=== PATIENT | female | born 1940 | race Caucasian/White ===

== ENCOUNTER 2017-01-04 16:53 | Emergency (ER) | payer MEDICARE, OTHER ==
[2017-01-04] MEDS ORDERED: Sodium Chloride 0.9% 10 ML Syringe FLUSH PRN (16:55)
--- NOTE | 2017-01-04 16:55 | EDM.PDOC ---
ED HPI GENERAL MEDICAL PROBLEM - General Chief Complaint: General Stated Complaint: cough, fever Time Seen by Provider: 01/04/17 16:54 Source of Information: Reports: Patient, Family (), Old Records ([facility] chart/EMR) History Limitations: Reports: No Limitations - History of Present Illness INITIAL COMMENTS - FREE TEXT/NARRATIVE: Patient was driven to the emergency room via private automobile by her for evaluation of a nonproductive cough, which started at about 8 AM this morning when she woke up. She also had a fever of 101 at 15:00 hours this afternoon with no medications other than her regular medications taken to this point. She denies any known exposure to infection with her influenza and Pneumovax boosters being up-to-date by her history. Patient did have some mild URI symptoms during the last couple of weeks with bilateral 7/10 frontal headaches at this time. The patient denies any chest pain/pressure, heart flutter, dizziness, orthostasis, orthopnea, diaphoresis, paresthesias, recent decreased exercise tolerance, or any other anginal-type symptoms. No recent history of abdominal pain, heartburn, nausea, diarrhea, melena, gross hematochezia, or any food intolerance, including fatty foods, etc.. Onset: Today, Gradual Onset Date: 01/04/17 Onset Time: 08:00 Duration: Getting Worse Location: Reports: Head. Denies: Face, Neck, Chest, Abdomen, Back, Upper Extremity, Left, Upper Extremity, Right, Radiates to Quality: Reports: Ache, Same as Previous Episode Severity: Moderate Improves with: Reports: None Worsens with: Reports: None Context: Reports: Other (As above) Associated Symptoms: Reports: Cough, Fever/Chills, Headaches. 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 (see below) (None) Bilateral Frontal Headache Pain Score (Numeric/FACES): 7 - Related Data Allergies Allergy/AdvReac Type Severity Reaction Status Date / Time linezolid [From Zyvox] Allergy Severe Wheezing Verified 01/06/13 12:02 doxycycline Allergy Intermediate Rash Verified 01/06/13 12:02 erythromycin base Allergy Intermediate Gastritis Verified 01/06/13 12:02 kiwi Allergy Intermediate Hives Verified 01/06/13 12:02 celecoxib [From Celebrex] Allergy Hypotension Verified 01/04/17 17:00 egg Allergy Difficulty Verified 01/04/17 16:58 Breathing Fish Containing Products Allergy Difficulty Verified 01/04/17 16:58 Breathing lemon Allergy Hives Verified 01/04/17 16:57 Penicillins Allergy Hives Verified 01/06/13 12:02 rifampin Allergy Flu Verified 01/06/13 12:02 symptoms Sulfa (Sulfonamide Allergy Hives Verified 01/06/13 12:02 Antibiotics) tetanus and diphtheria Allergy Large Verified 01/06/13 12:02 toxoids Fluid Pocket [place] Allergy Severe Airway Uncoded 01/06/13 12:02 Tightness environmental allergens Allergy Mild unknown Uncoded 01/06/13 12:02 nuts Allergy Airway Uncoded 01/06/13 12:02 Tightness raisins Allergy Itching Uncoded 01/06/13 12:02 Home Meds: Home Meds Acetaminophen 325 mg PO ASDIRECTED PRN 01/04/17 [History] Albuterol Sulfate [Proair Hfa] 2 dose IH ASDIRECTED PRN 01/04/17 [History] Aspirin 325 mg PO DAILY 01/04/17 [History] Blood Sugar Diagnostic [Glucose Test Strip] 1 ea .ROUTE ASDIRECTED 01/04/17 [ History] Budesonide/Formoterol [Symbicort 80-4.5 MCG] 2 puff INH BID 01/04/17 [History] Cefprozil [Cefzil] 500 mg PO BID #20 tablet 01/04/17 [Rx] Cholecalciferol (Vitamin D3) [Vitamin D3] 2,000 unit PO DAILY 01/04/17 [History] Hydrochlorothiazide 12.5 mg PO DAILY 01/04/17 [History] Levothyroxine 75 mcg PO ACBREAKFAST 01/04/17 [History] Magnesium Hydroxide [Milk of Magnesia] 30 ml PO BEDTIME PRN 01/04/17 [History] Magnesium Oxide 400 mg PO QPM #20 tablet 01/04/17 [Rx] Montelukast Sodium [Singulair] 10 mg PO BEDTIME 01/04/17 [History] Non-Formulary Medication [NF Drug] 5 ml PO TID PRN 01/04/17 [History] Nystatin [Mycostatin] 5 ml PO TID PRN 01/04/17 [History] Omeprazole 40 mg PO DAILY 01/04/17 [History] Pravastatin Sodium [Pravastatin (Pravachol)] 40 mg PO DAILY 01/04/17 [History] Pyridoxine HCl [Vitamin B-6] 50 mg PO DAILY 01/04/17 [History] metFORMIN HCl [Metformin HCl] 1,000 mg PO BID 01/04/17 [History] Past Medical History HEENT History: Reports: Allergic Rhinitis, Cataract, Hard of Hearing, Impaired Vision, Otitis Media, Other (See Below). Denies: Glaucoma, Macular Degeneration , Retinal Detachment Other HEENT History: Multiple food allergies including fish, nuts, maged, etc. 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 Denies: Afib, Aneurysm, Arrhythmia , Blood Clots/VTE/DVT, CAD, IN, Pacemaker, PVD Other Cardiovascular History: Unknown type of congenital cardiomyopathy and heart murmur with recurrent syncope as a child and resolution at age 14? Respiratory History: Reports: COPD, Other (See Below). Denies: Intubation, Previous, PE, Pneumothorax, Sleep Apnea Other Respiratory History: Benign pulmonary nodules bilaterally Gastrointestinal History: Reports: Colon Polyp, Diverticulosis, Gastritis, GERD , GI Bleed, Other (See Below). Denies: Celiac Disease, Cholelithiasis, Chronic Constipation, Chronic Diarrhea, Fecal Incontinence, Hepatitis, Inflammatory Bowel Disease, Irritable Bowel Syndrome, Jaundice, Pancreatitis, PUD Other Gastrointestinal History: Eosinophilic esophagitis with history of dysphagia secondary to esophageal stenoses Genitourinary History: Reports: None, Urinary Incontinence. Denies: Acute Renal Failure, Chronic Renal Insuffiency, Renal Calculus, STD, UTI, Recurrent SUPER[employer]KS History: Reports: . Denies: Dysfunctional Uterine Bleeding, Endometriosis, Fibroids, Polycystic Ovaries, Spontaneous , Therapeutic : 2 Para: 2 (Full term without complications during pregnancies or deliveries) LMP (Approximate): Menopausal (In her 50s) Musculoskeletal History: Reports: Arthritis, Back Pain, Chronic, Fracture, Neck Pain, Chronic, Osteoarthritis, Osteoporosis, Other (See Below). Denies: Amputation, Gout, RA, SLE Other Musculoskeletal History: Nasal fracture in her 40s Neurological History: Reports: CVA, Headaches, Chronic, Migraines, Other (See Below). Denies: Alzheimers Disease, Cerebral Aneurysms, Concussion, Head Trauma , MS, Neuropathy, Diabetic, Neuropathy, Peripheral, Parkinson's, Seizure, TIA Other Neuro History: Cluster headaches as a child; Right-sided CVA with brief left hemiparesis in 2007 with no significant permanent deficits Psychiatric History: Reports: None. Denies: Abuse, Victim of, ADD, Addiction, Anxiety, Depression, Psych Hospitalization(s), PTSD, Suicide Attempt, Suicidal Ideation Endocrine/Metabolic History: Reports: Diabetes, Type II, Hypothyroidism, Osteoporosis, Other (See Below). Denies: Diabetes, Type I, IDDM Other Endocrine/Metabolic History: benign thyroid nodules Hematologic History: Reports: None. Denies: Anemia, B12 Deficiency, Blood Transfusion(s), Iron Deficiency Immunologic History: Reports: None. Denies: AIDS, HIV, SLE Oncologic (Cancer) History: Reports: None. Denies: Basal Cell Carcinoma, Cervix , Colon, Hodgkin's Lymphoma, Leukemia, Lymphoma, Malignant Melanoma, Non-Hodgkin 's Lymphoma, Squamous Cell Carcinoma Dermatologic History: Reports: Other (See Below). Denies: Eczema, Psoriasis Other Dermatologic History: Lichen planus - Infectious Disease History Infectious Disease History: Reports: Chicken Pox, MRSA, Mumps, Other (See Below) . Denies: C-Difficile, Meningitis, Mononucleosis, Multidrug-Resistant Pseudomonas (MDRP), Pertussis (Whooping Cough), Rheumatic Fever, Rubella, Scarlet Fever, Shingles, VRE Other Infectious Disease History: MRSA of the left ear with secondary mastoiditis requiring surgery as below - Past Surgical History Head Surgeries/Procedures: Reports: None HEENT Surgical History: Reports: Adenoidectomy, Cataract Surgery, Myringotomy w Tube(s), Oral Surgery, Tonsillectomy, Other (See Below). Denies: Eye Surgery, Laser Surgery, LASIK, Naso-Sinus Surgery Other HEENT Surgeries/Procedures: Tonsillectomy and adenoidectomy at age 5; left -sided debridement from MRSA otitis media and mastoiditis with PE tube placement in 2012; Bilateral cataract surgery in 2004 Cardiovascular Surgical History: Reports: None. Denies: Varicose, Vascular Surgery Respiratory Surgical History: Reports: None. Denies: Thoracentesis GI Surgical History: Reports: Colonoscopy, EGD, Polypectomy, Other (See Below). Denies: Appendectomy, Cholecystectomy, Hernia, Abdominal, Hernia, Inguinal, Hernia Repair/Other Other GI Surgeries/Procedures: Last colonoscopy in 2012 with polypectomy 2 with unknown type of polyps in the colon; last EGD with esophageal dilatation on 08/07/15 Female Surgical History: Reports: Breast Biopsy, Other (See Below). Denies: Hysterectomy, Salpingo-Oophorectomy, Tubal Ligation Other Female Surgeries/Procedures: Right-sided breast biopsy for benign disease in her 60s Neurological Surgical History: Reports: None. Denies: C-Spine, Discectomy, Intracranial, Laminectomy, Lumbar Spine, Spinal Fusion, Vertebroplasty Musculoskeletal Surgical History: Reports: Arthroscopic Knee, Shoulder Surgery, Other (See Below). Denies: Amputation, Arthroscopic Procedure, Carpal Tunnel, Ganglion Cyst, Joint Replacement, ORIF Other Musculoskeletal Surgeries/Procedures:: Bilateral rotator cuff repair with right shoulder 2003 and left shoulder and 2009; laparoscopic meniscal repair of the right knee in December 2006 Oncologic Surgical History: Reports: Biopsy of Breast (As above) Dermatological Surgical History: Reports: None - Past Imaging History Past Imaging History: Reports: CAT Scan (Last CT scan of the chest in November 2016), Mammogram (Last mammogram on 11/22/16) Social & Family History - Tobacco Use Smoking Status *Q: Former Smoker Tobacco Use Within Last Twelve Months: No Years of Tobacco use: 7 Packs/Tins Daily: 1 (Smoked between ages 16 and 23) Used Tobacco, but Quit: Yes Smoking Cessation Information Provided To Patient: No Second Hand Smoke Exposure: No Second Hand Smoke Education Provided: No - Caffeine Use Caffeine Use: Reports: Tea (1 cup per day). 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 Denies: Malaise, Weakness, Fatigue, Night Sweats, Diaphoresis, Decreased Appetite, Weight Loss, Weight Gain HEENT: Reports: Glasses, Rhinitis. Denies: Dental Pain, Ear Discharge, Ear Pain , Eye Discharge, Eye Pain, Sinus Problem, Throat Pain, Throat Swelling, Vertigo , Vision Change Respiratory: Reports: Cough, Sputum. Denies: Shortness of Breath, Wheezing, Pleuritic Chest Pain, Hemoptysis Cardiovascular: Denies: Chest Pain, Blood Pressure Problem, Claudication, Dyspnea on Exertion, Edema, Lightheadedness, Orthopnea, Palpitations, PND, Syncope Endocrine: Reports: No Symptoms. Denies: Fatigue GI/Abdominal: Reports: No Symptoms. Denies: Abdominal Pain, Anorexia, Black Stool, Bloody Stool, Constipation, Diarrhea, Decreased Appetite, Difficulty Swallowing, Distension, Flatus, Hematemesis, Hematochezia, Melena, Nausea, Stool Incontinence, Vomiting : Reports: No Symptoms. Denies: Discharge, Dysuria, Flank Pain, Frequency, Hematuria, Pain, Urgency, Urinary Retention Musculoskeletal: Reports: Hand Pain (As above). Denies: Neck Pain, Shoulder Pain, Arm Pain, Back Pain, Leg Pain, Foot Pain, Joint Pain, Joint Swelling, Muscle Pain, Muscle Stiffness Skin: Reports: No Symptoms. Denies: Diaphoresis, Bruising, Erythema, Wound Neurological: Reports: Headache (Sinus headache as above). Denies: Confusion, Dizziness, Numbness, Paresthesia, Seizure, Syncope, Tingling, Trouble Speaking, Weakness Psychiatric: Reports: No Symptoms. Denies: Agitation, Anxiety, Confusion, Depression, Hallucinations Hematologic/Lymphatic: Reports: No Symptoms Immunologic: Reports: No Symptoms ED EXAM, GENERAL - Physical Exam Exam: See Below Exam Limited By: No Limitations General Appearance: Alert, WD/WN, No Apparent Distress Eye Exam: Bilateral Eye: EOMI, Normal Inspection (No nystagmus; patient wearing glasses), PERRL Ears: Normal External Exam, Normal Canal, Normal TMs (left anterior lower PE tube with no evidence of infection or drainage), Hearing Loss (Bilateral hearing aids with good results) Nose: Normal Inspection, Normal Mucosa, No Blood, Clear Rhinorrhea Throat/Mouth: Normal Lips, Normal Gums, Normal Oropharynx, Normal Voice, No Airway Compromise. No: Normal Teeth (Complete upper dentures, partial lowers), Dysphagia, Perioral Cyanosis Head: Atraumatic, Normocephalic, Sinus Tenderness (Borderline bilateral frontal) . No: Facial Swelling, Facial Tenderness Neck: Supple, Non-Tender, Full Range of Motion, Carotid Bruit (Bilateral carotid bruitsmild). No: Lymphadenopathy (L), Lymphadenopathy (R), Thyromegaly Respiratory/Chest: No Respiratory Distress, Lungs Clear, Normal Breath Sounds, No Accessory Muscle Use, Chest Non-Tender. No: Rales Cardiovascular: Normal Peripheral Pulses, Regular Rate, Rhythm, No Edema, No Gallop, No JVD, No Murmur, No Rub. No: Gallop/S3, Gallop/S4, Friction Rub Peripheral Pulses: 2+: Radial (L), Radial (R) GI/Abdominal: Normal Bowel Sounds, Soft, Non-Tender, No Organomegaly, No Distention, No Abnormal Bruit, No Mass. No: Guarding (Female) Exam: Deferred Rectal (Female) Exam: Deferred Back Exam: Normal Inspection, Full Range of Motion. No: CVA Tenderness (L), CVA Tenderness (R), Muscle Spasm Extremities: Normal Range of Motion, No Pedal Edema, Normal Capillary Refill, Other (Minimal Local palpation pain over the mid ulnar surface of the right with metacarpal with no evidence of foreign body, local signs of infection, etc. ) Neurological: Alert, Oriented, CN II-XII Intact, Normal Cognition, Normal Gait, No Motor/Sensory Deficits Psychiatric: Normal Affect, Normal Mood Skin Exam: Warm, Dry, Intact, Normal Color, No Rash. No: Diaphoretic, Wound/ Incision Lymphatic: No Adenopathy Course - Vital Signs Last Recorded V/S: Last Vital Signs Temp 37.6 C 01/04/17 17:33 Pulse 89 01/04/17 17:33 Resp 18 01/04/17 17:33 BP 130/69 01/04/17 17:33 Pulse Ox 95 01/04/17 17:33 Vital Signs - 24 hr 01/04/17 17:33 Temperature [ 37.6 C Temporal] Pulse, 89 Peripheral [ Right Pulse Oximetry] Respiratory 18 Rate Blood Pressure 130/69 [Right Upper Arm] O2 Sat by Pulse 95 Oximetry - Orders/Labs/Meds Orders: Active Orders 24 hr Category Date Time Status Communication Order [RC] ROUTINE Care 01/04/17 16:55 Active Peripheral IV Care [RC] . DIRECTED Care 01/04/17 16:56 Active Up With Assistance [RC] ASDIRECTED Care 01/04/17 16:55 Active Nothing Per Oral Diet [DIET] Diet 01/04/17 Breakfast Active Chest 2V [CR] Stat Exams 01/04/17 16:55 Taken Chest PE [Ang Chest] [CT] Stat Exams 01/04/17 17:45 Taken CULTURE BLOOD [BC] Stat Lab 01/04/17 17:09 Received CULTURE BLOOD [BC] Stat Lab 01/04/17 17:25 Received CULTURE SPUTUM + SMEAR [RM] Urgent Lab 01/04/17 16:55 Uncollected CULTURE STREP A CONFIRMATION [RM] Stat Lab 01/04/17 17:15 Results STREP SCRN A RAPID W CULT CONF [RM] Stat Lab 01/04/17 17:15 Results Sodium Chloride 0.9% [Saline Flush] Med 01/04/17 16:55 Active 10 ml FLUSH ASDIRECTED PRN Blood Culture x2 Reflex Set [OM.PC] Stat Oth 01/04/17 16:55 Ordered Obtain Past Medical Record [OM.PC] Stat Oth 01/04/17 16:55 Active Peripheral IV Insertion Adult [OM.PC] Stat Oth 01/04/17 16:55 Ordered Resuscitation Status Routine Resus Stat 01/04/17 16:55 Ordered Medication Orders Sodium Chloride (Saline Flush) 10 ml FLUSH ASDIRECTED PRN PRN Reason: Keep Vein Open Last Admin: 01/04/17 18:07 Dose: 10 ml Labs: Laboratory Tests 01/04/17 01/04/17 01/04/17 Range/Units 17:09 17:09 17:09 WBC 13.7 H (4.0-10.2) K/uL RBC 4.67 (3.77-5.09) M/uL Hgb 12.5 (11.7-15.5) g/dL Hct 38.4 (34.0-46.0) % MCV 82.2 L D (84.0-98.0) fL MCH 26.8 L (28.2-33.3) pg MCHC 32.6 (31.7-36.0) g/dL RDW 16.3 H (11.2-14.1) % Plt Count 306 (150-350) K/uL Neut % (Auto) 84.6 H (45.0-80.0) % Lymph % (Auto) 7.8 L (10.0-50.0) % Smyth % (Auto) 7.2 (2.0-14.0) % Eos % (Auto) 0.2 (0.0-5.0) % Baso % (Auto) 0.2 (0.0-2.0) % Neut # (Auto) 11.55 H (1.40-7.00) K/uL Lymph # (Auto) 1.06 (0.50-3.50) K/uL Smyth # (Auto) 0.99 (0.00-1.00) K/uL Eos # (Auto) 0.03 (0.00-0.50) K/uL Baso # (Auto) 0.03 (0.00-0.20) K/uL D-Dimer, Quantitative 640 H (0-400) ng/mL Sodium 139 (136-145) mmol/L Potassium 3.7 (3.5-5.1) mmol/L Chloride 102 (98-107) mmol/L Carbon Dioxide 25.9 (21.0-32.0) mmol/L BUN 9 (7-18) mg/dL Creatinine 0.65 (0.51-1.17) mg/dL Est Cr Clr Drug Dosing 54.54 mL/min Estimated GFR (MDRD) > 60 mL/min Glucose 123 H (74-106) mg/dL Lactic Acid (0.4-2.0) mmol/L Calcium 9.5 (8.5-10.1) mg/dL Magnesium 1.6 L (1.8-2.4) mg/dL Total Bilirubin 0.7 (0.2-1.0) mg/dL AST 15 (15-37) U/L ALT 19 (12-78) U/L Alkaline Phosphatase 97 (46-116) IU/L Creatine Kinase 50 (26-308) U/L Creatine Kinase Index 1.4 (0.0-2.5) % CK-MB (CK-2) 0.70 (0.00-3.60) ng/mL Troponin I 0.000 (0.000-0.056) ng/mL NT-Pro-B Natriuret Pep 162 H (0-125) pg/mL Total Protein 7.5 (6.4-8.2) g/dL Albumin 3.3 L (3.4-5.0) g/dL TSH, Ultra Sensitive 1.128 (0.358-3.740) mIU/mL 01/04/17 Range/Units 17:09 WBC (4.0-10.2) K/uL RBC (3.77-5.09) M/uL Hgb (11.7-15.5) g/dL Hct (34.0-46.0) % MCV (84.0-98.0) fL MCH (28.2-33.3) pg MCHC (31.7-36.0) g/dL RDW (11.2-14.1) % Plt Count (150-350) K/uL Neut % (Auto) (45.0-80.0) % Lymph % (Auto) (10.0-50.0) % Smyth % (Auto) (2.0-14.0) % Eos % (Auto) (0.0-5.0) % Baso % (Auto) (0.0-2.0) % Neut # (Auto) (1.40-7.00) K/uL Lymph # (Auto) (0.50-3.50) K/uL Smyth # (Auto) (0.00-1.00) K/uL Eos # (Auto) (0.00-0.50) K/uL Baso # (Auto) (0.00-0.20) K/uL D-Dimer, Quantitative (0-400) ng/mL Sodium (136-145) mmol/L Potassium (3.5-5.1) mmol/L Chloride (98-107) mmol/L Carbon Dioxide (21.0-32.0) mmol/L BUN (7-18) mg/dL Creatinine (0.51-1.17) mg/dL Est Cr Clr Drug Dosing mL/min Estimated GFR (MDRD) mL/min Glucose (74-106) mg/dL Lactic Acid 1.0 (0.4-2.0) mmol/L Calcium (8.5-10.1) mg/dL Magnesium (1.8-2.4) mg/dL Total Bilirubin (0.2-1.0) mg/dL AST (15-37) U/L ALT (12-78) U/L Alkaline Phosphatase (46-116) IU/L Creatine Kinase (26-308) U/L Creatine Kinase Index (0.0-2.5) % CK-MB (CK-2) (0.00-3.60) ng/mL Troponin I (0.000-0.056) ng/mL NT-Pro-B Natriuret Pep (0-125) pg/mL Total Protein (6.4-8.2) g/dL Albumin (3.4-5.0) g/dL TSH, Ultra Sensitive (0.358-3.740) mIU/mL Meds: Medications Generic Name Dose Route Start Last Admin Trade Name Freq PRN Reason Stop Dose Admin Sodium Chloride 10 ml 01/04/17 16:55 01/04/17 18:07 Saline Flush FLUSH 10 ml ASDIRECTED PRN Administration Keep Vein Open Discontinued Medications Generic Name Dose Route Start Last Admin Trade Name Freq PRN Reason Stop Dose Admin Ceftriaxone Sodium 1 gm/ 100 mls @ 200 mls/hr 01/04/17 17:46 01/04/17 18:04 Sodium Chloride IV 01/04/17 18:15 200 mls/hr ONETIME ONE Administration Iopamidol 100 ml 01/04/17 18:19 01/04/17 18:47 [id number] (76%) IVPUSH 01/04/17 18:20 100 ml ONETIME ONE Administration - Radiology Interpretation Free Text/Narrative:: Chest x-ray, PA and lateral, shows evidence of moderate COPD changes with additional moderate osteoarthritic and osteoporotic changes in the thoracic spine. No cardiomegaly, CHF, pulmonary infiltrates, pneumothorax, etc. Telephone consultation at 19:26 hours with the radiology department at [facility] with preliminary verbal report of CTA of the chest using PE protocol. Study was negative for PE with possible borderline CHF but no evidence of pulmonary infiltrates, etc. Stable previous multiple pulmonary nodules, however 2 new hourglass pulmonary nodules noted with recommended repeat CT of the chest in [address] Results Date: 01/04/17 CT Results Time: 19:26 Departure - Departure Time of Disposition: 20:10 Disposition: Home, Self-Care 01 Condition: Good Clinical Impression: D-dimer, elevated, Hypomagnesemia, Hypoalbuminemia, Peptic reflux disease, Hypothyroidism (acquired) Sinusitis Qualifiers: Sinusitis location: frontal Chronicity: acute Recurrence: non-recurrent Qualified Code(s): J01.10 - Acute frontal sinusitis, unspecified COPD (chronic obstructive pulmonary disease) Qualifiers: COPD type: COPD with acute lower respiratory infection Qualified Code(s): J44.0 - Chronic obstructive pulmonary disease with acute lower respiratory infection Osteoarthritis Qualifiers: Osteoarthritis location: multiple joints Osteoarthritis type: primary Qualified Code(s): M15.0 - Primary generalized (osteo)arthritis Hypertension Qualifiers: Hypertension type: essential hypertension Qualified Code(s): I10 - Essential ( primary) hypertension Diabetes mellitus Qualifiers: Diabetes mellitus type: type 2 Diabetes mellitus complication status: without complication Diabetes mellitus exterminator insulin use: without exterminator use Qualified Code(s): E11.9 - Type 2 diabetes mellitus without complications - Discharge Information Prescriptions: Cefprozil [Cefzil] 500 mg PO BID #20 tablet Magnesium Oxide 400 mg PO QPM #20 tablet Instructions: Ceftriaxone injection, Sinusitis, Adult, [id number] Referrals: Xiomara Monroe PA-C [Primary Care Provider] - Forms: ED Department Discharge Additional Instructions: 1. Follow up with your regular provider in 2 days for reevaluation and recommended repeat CBC and d-dimer with additional recommended follow-up in 10- 14 days for reevaluation and recommended repeat CBC, comprehensive metabolic panel, and magnesium level. Consider CT scan of the sinuses depending on your symptoms at time of 10-14 day follow-up 2. Recommend repeat CT scan of the chest in about 3 months secondary to newly diagnosed additional pulmonary nodules today 3. This Facility will call you tomorrow for recommended venous Doppler studies of your legs bilaterally. Do not leave this facility until you get a verbal report from me at that time 4. Continue strict low-fat, low-cholesterol, diabetic, diverticulosis diet with additional high protein Glucerna supplements twice a day as snacks 5. Recommend daily alternating a.m./p.m. before breakfast and supper home blood sugars with record to be brought to each of your follow-up visits with your regular providerss - Problem List & Annotations (1) Sinusitis SNOMED Code(s): 20071126 Code(s): J32.9 - CHRONIC SINUSITIS, UNSPECIFIED Status: Acute Priority: High Current Visit: Yes Onset Date: 01/04/17 Annotation/Comment:: Bilateral frontal sinusitis by clinical exam. Various therapeutic options were given to the patient, who does agree to IV Rocephin in the emergency room despite her previous history to hives with penicillin. She tolerated IV Rocephin well without complications or reaction. Note she is allergic to multiple antibiotic medications, although the patient has apparently tolerated Zithromax in the past.. 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 Continue close follow-up with her regular provider as per discharge instructions especially in light of her leukocytosis today. Initiate Cefzil therapy tomorrow Qualifiers: Sinusitis location: frontal Chronicity: acute Recurrence: non-recurrent Qualified Code(s): J01.10 - Acute frontal sinusitis, unspecified (2) D-dimer, elevated SNOMED Code(s): 016124903 Code(s): R79.89 - OTHER SPECIFIED ABNORMAL FINDINGS OF BLOOD CHEMISTRY Status: Acute Priority: High Current Visit: Yes Onset Date: 01/04/17 Annotation/Comment:: Note CTA of the chest results as above. No clinical evidence of DVT, however is therapeutic options were discussed with the patient. Venous Doppler study to be conducted in this facility tomorrow as per discharge instructions (3) COPD (chronic obstructive pulmonary disease) SNOMED Code(s): 82787034 Code(s): J44.9 - CHRONIC OBSTRUCTIVE PULMONARY DISEASE, UNSPECIFIED Status : Acute Priority: High Current Visit: Yes Onset Date: ~01/04/17 Annotation/Comment:: Note recent history of URI symptoms and last couple of weeks with cough since this morning. No direct clinical evidence of pneumonia either by exam, CT scan or chest x-ray with probable concomitant mild bronchitis. IV Rocephin given in the emergency room as above. Continue to observe closely by her regular provider Qualifiers: COPD type: COPD with acute lower respiratory infection Qualified Code(s): J44.0 - Chronic obstructive pulmonary disease with acute lower respiratory infection (4) Hypertension SNOMED Code(s): 05028449 Code(s): I10 - ESSENTIAL (PRIMARY) HYPERTENSION Status: Chronic Priority : Medium Current Visit: Yes Annotation/Comment:: Blood pressures are under good control in the emergency room Qualifiers: Hypertension type: essential hypertension Qualified Code(s): I10 - Essential (primary) hypertension (5) Hypoalbuminemia SNOMED Code(s): 922318048 Code(s): E88.09 - OTH DISORDERS OF PLASMA-PROTEIN METABOLISM, NEC Status: Acute Priority: Medium Current Visit: Yes Onset Date: 01/04/17 Annotation/Comment:: High Protein Glucerna supplements twice a day as snacks recommended. Continue to observe closely by her regular provider (6) Hypomagnesemia SNOMED Code(s): 110566784 Code(s): E83.42 - HYPOMAGNESEMIA Status: Acute Priority: Medium Current Visit: Yes Onset Date: 01/04/17 Annotation/Comment:: Magnesium oxide to be initiated with close follow-up by regular provider as per discharge instructions (7) Hypothyroidism (acquired) SNOMED Code(s): 928704204 Code(s): E03.9 - HYPOTHYROIDISM, UNSPECIFIED Status: Chronic Priority: Medium Current Visit: Yes Annotation/Comment:: TSH normal today (8) Osteoarthritis SNOMED Code(s): 471277892 Code(s): M19.90 - UNSPECIFIED OSTEOARTHRITIS, UNSPECIFIED SITE Status: Chronic Priority: Medium Current Visit: Yes Annotation/Comment:: Additional osteoporosis by x-rays. Stable by history with patient having recent visit to therapy secondary to right hand sprain Qualifiers: Osteoarthritis location: multiple joints Osteoarthritis type: primary Qualified Code(s): M15.0 - Primary generalized (osteo)arthritis (9) Peptic reflux disease SNOMED Code(s): 18806158 Code(s): K21.9 - GASTRO-ESOPHAGEAL REFLUX DISEASE WITHOUT ESOPHAGITIS Status: Chronic Priority: Medium Current Visit: Yes Annotation/Comment:: Stable by history (10) Diabetes mellitus SNOMED Code(s): 79247510 Code(s): E11.9 - TYPE 2 DIABETES MELLITUS WITHOUT COMPLICATIONS Status: Chronic Priority: Medium Current Visit: Yes Annotation/Comment:: She currently only takes Accu-Cheks on a weekly basis in the a.m. with average Accu- Cheks in the 90s to 100s, however recent glycosylated hemoglobin was elevated to 7.8% by her history. She was recommended to take Accu-Cheks on a daily alternating a.m./p.m. basis with record to be brought to her regular providers at each visit. Continue Metformin for now with no other change in medical therapy Qualifiers: Diabetes mellitus type: type 2 Diabetes mellitus complication status: without complication Diabetes mellitus intermediate insulin use: without intermediate use Qualified Code(s): E11.9 - Type 2 diabetes mellitus without complications - Problem List Review Problem List Initiated/Reviewed/Updated: Yes - My Orders Last 24 Hours: My Active Orders 01/04/17 16:55 Communication Order [RC] ROUTINE Up With Assistance [RC] ASDIRECTED Chest 2V [CR] Stat CULTURE SPUTUM + SMEAR [RM] Urgent Sodium Chloride 0.9% [Saline Flush] 10 ml FLUSH ASDIRECTED PRN Blood Culture x2 Reflex Set [OM.PC] Stat Obtain Past Medical Record [OM.PC] Stat Peripheral IV Insertion Adult [OM.PC] Stat Resuscitation Status Routine 01/04/17 16:56 Peripheral IV Care [RC] . DIRECTED 01/04/17 17:09 CULTURE BLOOD [BC] Stat 01/04/17 17:15 CULTURE STREP A CONFIRMATION [RM] Stat STREP SCRN A RAPID W CULT CONF [RM] Stat 01/04/17 17:25 CULTURE BLOOD [BC] Stat 01/04/17 17:45 Chest PE [Ang Chest] [CT] Stat 01/04/17 Breakfast Nothing Per Oral Diet [DIET] - Assessment/Plan Last 24 Hours: My Active Orders 01/04/17 16:55 Communication Order [RC] ROUTINE Up With Assistance [RC] ASDIRECTED Chest 2V [CR] Stat CULTURE SPUTUM + SMEAR [RM] Urgent Sodium Chloride 0.9% [Saline Flush] 10 ml FLUSH ASDIRECTED PRN Blood Culture x2 Reflex Set [OM.PC] Stat Obtain Past Medical Record [OM.PC] Stat Peripheral IV Insertion Adult [OM.PC] Stat Resuscitation Status Routine 01/04/17 16:56 Peripheral IV Care [RC] . DIRECTED 11/29/17 17:09 CULTURE BLOOD [BC] Stat 01/04/17 17:15 CULTURE STREP A CONFIRMATION [RM] Stat STREP SCRN A RAPID W CULT CONF [RM] Stat 01/04/17 17:25 CULTURE BLOOD [BC] Stat 01/04/17 17:45 Chest PE [Ang Chest] [CT] Stat 01/04/17 Breakfast Nothing Per Oral Diet [DIET] Assessment:: As above Plan: As above. Extensive precautions were given to the patient and her , who are in agreement with the treatment plan. See Patient Instructions for further treatment and plan.
[2017-01-04 17:35] VITALS: BP 130/69
[2017-01-04 17:38] LABS: CHLORIDE,CL 102 mmol/L (98-107); SODIUM,NA 139 mmol/L (136-145)
[2017-01-04] MEDS ORDERED: cefTRIAXone 1 GM in Sodium Chloride 0.9% 100 ML IV ONE (17:46)
[2017-01-04] MEDS ORDERED: Iopamidol 755 Mg/ML 100 ML Bottle IVPUSH ONE (18:19)
== END 2017-01-04 20:15 | disposition home or self-care (01) ==
LOC: LL.ED 16:53
DX: J44.0 Chronic obstructive pulmonary disease with (acute) lower respiratory infection (principal); J01.10 Acute frontal sinusitis, unspecified; M15.0 Primary generalized (osteo)arthritis; R79.1 Abnormal coagulation profile; E83.42 Hypomagnesemia; E88.09 Other disorders of plasma-protein metabolism, not elsewhere classified; K21.9 Gastro-esophageal reflux disease without esophagitis; E03.9 Hypothyroidism, unspecified; E78.00 Pure hypercholesterolemia, unspecified; I10 Essential (primary) hypertension; E11.9 Type 2 diabetes mellitus without complications; Z88.8 Allergy status to other drugs, medicaments and biological substances; Z79.84 Long term (current) use of oral hypoglycemic drugs; Z79.899 Other long term (current) drug therapy; Z79.82 Long term (current) use of aspirin; Z87.891 Personal history of nicotine dependence
CPT/HCPCS: 36415; 71020; 71275; 80053; 82550; 82553; 83605; 83735; 83880; 84443; 84484; 85025; 85379; 87040; 87081; 87430; 87804; 96365; 99284; J0696; J7050; Q9967